=== PATIENT | female | born 1980 | race Caucasian/White ===

== ENCOUNTER → 2017-08-24 | Outpatient (CLI) | payer OTHER | END | disposition home or self-care (01) | LOC: C.LABSPEC 17:40 | PROVIDERS: ATTEND Obstetrics & Gynecology | DX: O09.511 Supervision of elderly primigravida, first trimester (principal) ==

== ENCOUNTER → 2017-09-06 | Outpatient (CLI) | payer OTHER ==
[~2017-09-06] MED LIST: FLUO20CA35 PO; FROV2.5T5 PO; IBUP-1050 PO; MULT-506 PO
== END | disposition home or self-care (01) ==
LOC: C.PAPS 08:16
PROVIDERS: ATTEND Obstetrics & Gynecology
DX: O09.511 Supervision of elderly primigravida, first trimester (principal)

== ENCOUNTER 2017-09-18 08:41 | Day surgery (SDC) | payer OTHER ==
[2017-09-14 14:22] VITALS: BMI 22.0
[~2017-09-18] VITALS: Ht 149.9 cm; Wt 50.9 kg
[~2017-09-18 08:41] MED LIST changes: +DOXYCYCLINE HYCLATE 100 MG CAP PO SCH; +LACTATED RINGER'S 1000ML 1,000 ML IV SCH
[2017-09-18 09:06] VITALS: BP 112/65; PULSE 81; TEMP 37; O2SAT 98; Ht 149.9 cm; Wt 50.9 kg
[2017-09-18 09:17] LABS: BASO % 0.5 %; BASO ABS # 0.03 K/uL (0-0.2); EOS % 4.3 %; EOS ABS # 0.25 K/uL (0-0.5); HEMATOCRIT 36.3 % (37-47); HEMOGLOBIN 12.4 g/dL (12.0-16.0); IG# 0.01 K/uL (0.00-0.02); LYMPH % 27.8 %; LYMPH ABS # 1.63 K/uL (1.2-3.4); MEAN CELL VOLUME 85.8 fL (80-100); MEAN CORPUSCULAR HEMOGLOBIN 29.3 pg (25-34); MEAN PLATELET VOLUME 8.6 fL (7.4-10.4); MONO % 6.1 %; MONO ABS # 0.36 K/uL (0.11-0.59); NEUT % 61.1 %; NEUT ABS # 3.58 K/uL (1.4-6.5); PLATELET COUNT 260 K/uL (130-400); RED CELL DISTRIBUTION WIDTH CV 13.8 % (11.5-14.5); RED CELL DISTRIBUTION WIDTH SD 42.9 fL (36.4-46.3); WHITE BLOOD COUNT 5.86 K/uL (4.8-10.8)
[2017-09-18] MEDS ORDERED: KETOROLAC TROMETHAMINE 30 MG/ML VIAL ONE (09:22)
[2017-09-18] MEDS ORDERED: PROPOFOL IV EMULSION 10 MG/ML 20 ML VIAL IV ONE (09:22)
[2017-09-18] MEDS ORDERED: LIDOCAINE HCL 2% 2 ML VIAL (20MG/ML) ONE (09:22)
[2017-09-18] MEDS ORDERED: ONDANSETRON INJ 2 MG/ML 2 ML VIAL ONE (09:22)
[2017-09-18] MEDS ORDERED: MIDAZOLAM HCL 1 MG/ML 2ML VIAL ONE (09:22)
[2017-09-18] MEDS ORDERED: DEXAMETHASONE SOD INJ 4 MG/ML VIAL ONE (09:22)
[2017-09-18] MEDS ORDERED: FENTANYL CITRATE INJ 50 MCG/1 ML 2 ML VIAL ONE (09:23)
[2017-09-18 09:26] LABS: MEAN CORPUSCULAR HGB CONC 34.2 g/dl (32-36)
--- NOTE | 2017-09-18 09:40 | History & Physical Bridge Note ---
H&P Re-Evaluation Bridge Note: I have examined the patient, reviewed the History & Physical and in the interval since the performance of the History & Physical I have noted the following changes of clinical significance: No changes noted
[2017-09-18] MEDS ORDERED: METHYLERGONOVINE MALEATE 0.2 MG/ML AMP ONE (10:23)
[2017-09-18] MEDS ORDERED: EpHEDrine SULFATE INJ 50 MG/ML AMP ONE (10:44)
[2017-09-18] MEDS ORDERED: SODIUM CHLORIDE 0.9% 1000ML 1,000 ML IV SCH (10:49)
--- NOTE | 2017-09-18 10:49 | [facility] Post Operative Brief Note ---
Immediate Operative Summary Operative Date Sep 18, 2017. Pre-Operative Diagnosis Missed Post-Operative Diagnosis Same Procedure(s) Performed Suction D&E Surgeon Dr. Nogueira Boat Hoist Operator Surgeon(s) none Estimated Blood Loss 25 Findings Consistent with Post-Op Diagnosis Fluids (cc crystalloids) 800 Specimens a. products of conception Drains bladder drained prior to procedure, 50ml Anesthesia Type General Complication(s) none Disposition Accompanied Pt To Recover: no Disposition: Recovery Room / PACU
--- NOTE | 2017-09-18 10:51 | Discharge Instructions ---
Discharge Instructions Date of Service Sep 18, 2017. Visit Reason for Visit: Missed Discharge Discharge Diagnosis / Problem: Missed Discharge Goals Goal(s): Diagnostic testing, Therapeutic intervention Activity Recommendations Activity Limitations: per Instructions/Follow-up section Anesthesia . Post Anesthesia Instructions: If you have had General Anesthesia or IV Sedation: * Do not drive today. * Resume driving when surgeon permits. * Do not make important decisions or sign legal documents today. * Call surgeon for: 1. Temperature elevations greater than 101 degrees F. 2. Uncontrollable pain. 3. Excessive bleeding. 4. Persistent nausea and vomiting. 5. Medication intolerance (nausea, vomiting or rash). * For nausea and vomiting use only clear liquids such as: tea, soda, bouillon until nausea subsides, then gradually increase diet as tolerated. * If you have any concerns or questions, call your surgeon's office. If physician is unavailable and it is an emergency, call 911 or go to the nearest emergency room. . Instructions / Follow-Up Instructions / Follow-Up ACTIVITY RECOMMENDATIONS: * Avoid tampons, douching, hot tubs, pools, and intercourse until bleeding has stopped. * May shower as usual. * No strenuous activity for 24-48 hours. After 24-48 hours, you may do anything you feel like doing (driving and sports are okay). SPECIAL CARE INSTRUCTIONS: Special Diet: * Mild nausea may occur in the immediate post-operative period. * Take clear liquids such as tea, cola or bouillon until all nausea has subsided; you may then resume your normal diet. Special Care: * Light bleeding and vaginal spotting can last from a few days to 3-4 weeks. Call your doctor if bleeding becomes heavier than the heaviest part of your period. * Check your temperature twice a day for one week. If it goes above 100.4 degrees Fahrenheit (38.0 Celsius), notify your doctor. * Call your doctor's office for an appointment for 6 weeks after your surgery. FOLLOW-UP VISIT: Call your doctor's office for an appointment for 6 weeks after your surgery. Diet Recommendations Recommended Home Diet: resume previous diet Procedures Procedures Performed: Suction D&E Pending Studies Studies pending at discharge: yes List of pending studies: gross pathology Medical Emergencies . Who to Call and When: Medical Emergencies: If at any time you feel your situation is an emergency, please call 911 immediately. . Non-Emergent Contact Non-Emergency issues call your: Primary Care Provider, Staff Antisubmarine Officer . . "Provider Documentation" section prepared by Kia Nogueira. .
[2017-09-18] MEDS ORDERED: PROMETHAZINE HCL INJ 25 MG in SODIUM CHLORIDE 0.9% 50ML 50 ML IV PRN (11:00)
[2017-09-18] MEDS ORDERED: EpHEDrine SULFATE INJ 50 MG/ML AMP IV PRN (11:00)
[2017-09-18] MEDS ORDERED: FENTANYL CITRATE INJ 50 MCG/1 ML 2 ML VIAL IV PRN (11:00)
[2017-09-18] MEDS ORDERED: ATROPINE SULFATE 0.1 MG/ML 5ML SYR IV PRN (11:00)
[2017-09-18] MEDS ORDERED: ONDANSETRON INJ 2 MG/ML 2 ML VIAL IV PRN ×2 (11:00)
[2017-09-18] MEDS ORDERED: OXYCODONE/ACETAMINOPHEN 5-325 TAB PO PRN ×2 (11:00)
--- NOTE | 2017-09-18 11:10 | DIAGNOSTIC IMAGING REPORT ---
ULTRASOUND FOR INTRAOPERATIVE GUIDANCE CLINICAL HISTORY: Missed . Dilatation and excision procedure. COMPARISON STUDY: Obstetrical ultrasound dated 09/14/2017. FINDINGS: The admitted attorneys provided intraoperative guidance for the inspecting engineer in performing a D&E procedure. The initial images show complex solid and cystic material present within the endometrial canal. The final image shows complex fluid within the major canal that likely represent blood products. Clinical correlation will be required. IMPRESSION: Intraoperative sonographic images as above. See operative report for detailed findings. Electronically signed by: Humphrey Madrid M.D. 09/18/2017 11:08 AM Dictated Date/Time: 09/18/2017 11:06 AM
--- NOTE | 2017-09-18 11:10 | DIAGNOSTIC IMAGING REPORT ---
ULTRASOUND FOR INTRAOPERATIVE GUIDANCE CLINICAL HISTORY: Missed . Dilatation and excision procedure. COMPARISON STUDY: Obstetrical ultrasound dated 09/14/2017. FINDINGS: The plastering supervisor provided intraoperative guidance for the property utilization manager in performing a D&E procedure. The initial images show complex solid and cystic material present within the endometrial canal. The final image shows complex fluid within the major canal that likely represent blood products. Clinical correlation will be required. IMPRESSION: Intraoperative sonographic images as above. See operative report for detailed findings. Electronically signed by: Humphrey Madrid M.D. 09/18/2017 11:08 AM Dictated Date/Time: 09/18/2017 11:06 AM
--- NOTE | 2017-09-18 11:12 | [facility] Operative Report ---
Operative Report Operative Date Sep 18, 2017. Pre-Operative Diagnosis Missed Post-Operative Diagnosis Same Procedure(s) Performed Suction D&E Surgeon Dr. Noguiera Fire Protection Fabricator Surgeon(s) none Estimated Blood Loss 25 Fluids 800 Specimens a. products of conception Drains bladder drained prior to procedure, 50ml Anesthesia Type General Complication(s) none Disposition no Recovery Room / PACU Indications Patient is a 36-year-old with last menstrual period 07/05/2017. At her first visit, ultrasound showed a 9 week gestation with no heartbeat. There is also the appearance of some fluid surrounding baby on ultrasound. She was counseled in the office on all options of treatment for miscarriage, and elected to undergo dilation and evacuation in the operating room. Description of Procedure The patient was seen in the preoperative holding area where risks benefits alternatives to surgery were reviewed. She elected to proceed with the case. She had previously signed informed consent under no duress in the office. She received 1 dose of oral doxycycline as preoperative antibiotic. The patient was taken to the operating room, where general anesthesia was administered. She was placed in the dorsal lithotomy position with feet in candycane stirrups, and prepared and draped in the usual standard fashion. A weighted speculum was placed in the vagina, the cervix is visualized, and its anterior lip was grasped with a single-tooth tenaculum. The cervix was then gently dilated to admit a 10 mm curved suction curette. The suction was connected to the suction machine. Under ultrasound guidance, the suction evacuation was undertaken. 3 gentle swipes with the sharp curette were undertaken after suction, and 1 more pass with the suction curette was performed. Ultrasound showed no remaining products of conception at the conclusion of procedure. The patient was given 1 dose of Methergine and a dose of Toradol by anesthesia, all instruments removed from the vagina, excellent hemostasis was observed, and the patient was awoken from anesthesia. She was cleaned of all Betadine prep. She was taken to the recovery area in stable and good condition. She will receive 1 additional dose of doxycycline in the postoperative area, and a prescription for 5 days of twice daily Flagyl. This is already been sent to her pharmacy on file. She will follow-up in the office in 2 weeks. She elected not to have genetic testing performed on the conceptus , and products of conception will be sent to pathology for gross inspection only. I attest to the content of the Intraoperative Record and any orders documented therein. Any exceptions are noted below.
--- NOTE | 2017-09-18 11:27 | Anesthesiology Progress Note ---
Anesthesia Post Op Note Date & Time Sep 18, 2017 at 11:27 Vital Signs Pain Intensity: 0 Vital Signs Past 12 Hours Date Time Temp Pulse Resp B/P (MAP) Pulse Ox O2 Delivery O2 Flow Rate FiO2 09/18/17 11:25 36.6 83 14 123/77 99 Room Air 09/18/17 11:15 92 14 117/71 100 Room Air 09/18/17 11:05 88 14 116/69 100 Oxymask 10 09/18/17 10:57 36.3 92 14 121/69 100 Oxymask 10 09/18/17 09:06 37 81 18 112/65 (81) 98 Room Air Notes Mental Status: alert / awake / arousable, participated in evaluation Pt Amnestic to Procedure: Yes Nausea / Vomiting: adequately controlled Pain: adequately controlled Airway Patency, RR, SpO2: stable & adequate BP & HR: stable & adequate Hydration State: stable & adequate Anesthetic Complications: no major complications apparent
[2017-09-18 11:35] VITALS: BP 102/79; PULSE 80; TEMP 36.5; O2SAT 97
[2017-09-18 12:03] VITALS: BP 104/61; PULSE 78; TEMP 36.3; O2SAT 99
== END 2017-09-18 12:14 | disposition home or self-care (01) ==
LOC: C.ACU 08:41
PROVIDERS: ATTEND Obstetrics & Gynecology
DX: O02.1 Missed abortion (principal); F32.9 Major depressive disorder, single episode, unspecified; Z90.89 Acquired absence of other organs; F41.8 Other specified anxiety disorders; Z83.49 Family history of other endocrine, nutritional and metabolic diseases; Z83.42 Family history of familial hypercholesterolemia; Z81.8 Family history of other mental and behavioral disorders; Z82.49 Family history of ischemic heart disease and other diseases of the circulatory system; Z91.041 Radiographic dye allergy status; Z88.2 Allergy status to sulfonamides

== ENCOUNTER 2018-10-31 07:52 | Inpatient (IN) ==
[2018-10-31] MEDS ORDERED: OXYTOCIN 30 UNITS/500 ML BAG IV PRN ×2 (08:18→08:21)
--- NOTE | 2018-10-31 08:41 | History & Physical Report ---
Date of Service October 31, 2018 Assessment & Plan (1) Elective induction of labor planned: Pt is a 37 year old with lmp of 01/17/2018 and EDC of 10/24/2018 confirmed by 1st trimester ultrasound on 03/15/2018 at 8+1 who presents at 41+0 for induction of labor 2/2 post dates. course was significant for depression/anxiety treated with Prozac 20mg, GDM, GBS +. - FHT reassuring Cat 1 tracing - Membranes intact -3 - GBS + PCN G per protocol - Fulton balloon place yesterday evening ~1999 - LR @ 125 - Pitocin 30 units in 500 mls @ 1 mls/hr -> up by 2 - Monitor FHT/toco - Monitor BP - Routine labor care - Anticipate Vaginal , Expectant management History of Present Illness Primary Care Provider: Sirena Paige, Pt is a 37 year old with lmp of 01/17/2018 and EDC of 10/24/2018 confirmed by 1st trimester ultrasound on 03/15/2018 at 8+1 who presents at 41+0 for induction of labor 2/2 post dates. course was significant for depression/anxiety treated with Prozac 20mg, GDM, GBS +. Last cervical exam prior to fulton balloon insertion was /-3 today on presentation -3. Currently she reports not feeling contractions and does not have significant ctx on toco. Denies nausea, vomiting, RUQ pain, swelling, headache, blurred vision, vaginal bleeding, or decreased movement. Pt resting comfortably in bed no acute complaints, answered all questions. labs First Visit: 8+1 Weight Gain: 28.8 lbs A+ antibody neg Last HGB: 13.2 10/25/2018 DM screen:143 08/05/2018 failed GTT FBS:74, 1 hour 176, 2 hour 157 Rubella Immune HIV neg Pap neg 09/06/17 Last U/S 09/20/18: Cephalic, AC 17% EGA:41+0 BP Range 100/80-152/94 U/A: NG GBS Postive 09/26/2018 RPR Negative HBsAG Negative GC/ Chlamydia negative Allergies Allergy/AdvReac Type Severity Reaction Status Date / Time Iodinated Contrast- Oral and Allergy Severe ANAPHYLAXIS Verified 10/25/18 16:58 IV Dye Sulfa (Sulfonamide Allergy Unknown HIVES Verified 10/25/18 16:58 Antibiotics) tree nut Allergy Hives Verified 10/25/18 16:58 Home Medications Home Medications Medication Instructions Recorded Confirmed Type ferrous sulfate [iron] 325 mg PO DAILY 10/30/18 10/30/18 History fluoxetine [Prozac] 20 mg PO DAILY 10/30/18 10/30/18 History vit-iron fum-folic ac 1 tab PO DAILY 10/30/18 10/30/18 History [ Vitamin] Patient History Medical History Depression take Prozac H/O wisdom tooth extraction Hx: UTI (urinary tract infection) as a child and in younger adult years Migraines has not had one in "years" since late 20s Ovarian cyst Surgical History History of appendectomy at age 33 History of dilation and curettage s/p SAB in 09/2017 Social History Preferred Language: Slovenian Beliefs That Will Affect Care: None marital status: Current Living Situation: Spouse Feels Safe at Home: Yes Smoking Status: Never smoker Hx Alcohol Use: No Hx Substance Use: No OB History OBHX: 09/14/2017 Spontaneous @ 10+5, Curent : LMP 01/17/2018, not on BC at conception, hCG+ on 02/11/2018, took PNV and Iron throughout [employer] History GYNHX: menarche @ 13, monthly cycles 28 days, normal amount and duration, neg pap hx abnormal pap 2004, hx D&E 09/2017, hx UTI, hx ovarian cysts, yeast infections, no hx PID or STDS PMHX: hx UTI, migraines- Frova PRN (has not taken since ), hx depression/anxiety- Prozac managed by [facility] Dr. Patel, appendectomy, wisdom teeth, cryosurgery, +chicken pox Allergies: sulfa, IV dye, tree nuts Physical Exam Constitutional: WD/WN, vitals as above no acute distress Eyes: normal visual loyd by confrontation Neck: normal visual inspection and trachea midline Respiratory: normal respiratory effort, lungs clear to auscultation Cardiovascular: RRR, no murmur, no edema Heart Sounds: normal S1 and normal S2 Extremities: normal capillary refill; no calf tenderness Gastrointestinal (Abdomen): Gravid belly Musculoskeletal: moves all extremities Skin: no rashes, warm and dry Psychiatric: A+Ox3, euthymic affect Results & Data Laboratory Results 10/31/18 Range/Units 08:34 WBC Pending RBC Pending Hgb Pending Hct Pending MCV Pending MCH Pending MCHC Pending Plt Count Pending Medications Administered Current Inpatient Medications Lactated Ringer's (Lr) 1,000 mls @ 125 mls/hr IV .Q8H PRN; Protocol PRN Reason: L&D Protocol Stop: 11/02/18 08:17 Oxytocin (Pitocin) 30 units in 500 mls @ 333.333 mls/hr IV .Q1H30M PRN; Protocol PRN Reason: Bleeding Control Stop: 11/30/18 08:17 Oxytocin (Pitocin) 30 units in 500 mls @ 1 mls/hr IV .Q24H PRN; Protocol PRN Reason: Labor Induction/Augmentation Stop: 11/02/18 08:20 Penicillin G Potassium 3 mu/ (Dextrose) 106 mls @ 100 mls/hr IV Q4H PRN PRN Reason: Give until delivery Stop: 11/10/18 08:25 Penicillin G Potassium 6 mu/ (Dextrose) 262 mls @ 262 mls/hr IV 0845 ONE Stop: 10/31/18 09:44 Monitoring External Monitor Heart Rate: 140 moderate variability Accelerations: present Decelerations: absent Contraction Frequency: absent Category 1 Resident Activity Tracking Resident Involvement: Resident Care Provided Care Provided: Adult Hospital Medicine
[2018-10-31] MEDS ORDERED: PENICILLIN G POTASSIUM 6 MU in DEXTROSE 5% 250 ML IV ONE (08:45)
[2018-10-31 08:46] LABS: Hematocrit (blood only) 36.7 % (37-47); Hemoglobin 12.5 g/dL (12.0-16.0); Mean Platelet Volume 10.1 fL (7.4-10.4); Platelet Count 158 K/uL (130-400); RDW Coefficient of Variation 14.7 % (11.5-14.5); RDW Standard Deviation 46.2 fL (36.4-46.3); Red Blood Count 4.22 M/uL (4.2-5.4); White Blood Count 11.23 K/uL (4.8-10.8)
[2018-10-31 08:59] LABS: Mean Corpuscular Hgb Conc 34.1 g/dL (32-36)
[2018-10-31] MEDS: LACTATED RINGER'S 1,000 ML IV PRN ×2 (09:24→14:21)
[2018-10-31] MEDS ORDERED: ePHEDrine sulfate 50 MG/ML AMP ONE (13:39)
[2018-10-31] MEDS ORDERED: fentaNYL citrate 100 MCG/2 ML VIAL ONE (13:39)
[2018-10-31] MEDS ORDERED: BUPIVACAINE 0.25% 30 ML VIAL ONE (13:39)
[2018-10-31] MEDS ORDERED: fentaNYL 2MCG/ML ROPIV 1.25MG/ML 100 ML BAG EPI ONE (13:40)
[2018-10-31] MEDS ORDERED: DiphenhydrAMINE HCL 50 MG/ML VIAL IV PRN (13:50)
[2018-10-31] MEDS ORDERED: LACTATED RINGER'S 1,000 ML IV PRN (13:50)
[2018-10-31] MEDS ORDERED: NALBUPHINE HCL INJ 10 MG/ML AMP IV PRN (13:50)
[2018-10-31] MEDS ORDERED: NALOXONE HCL 1 MG in SODIUM CHLORIDE 0.9% 1000ML 1,000 ML IV PRN (13:50)
[2018-10-31] MEDS ORDERED: NALOXONE HCL 0.4 MG/1 ML VIAL/CARP IV PRN (13:50)
[2018-10-31] MEDS: PENICILLIN G POTASSIUM 3 MU in DEXTROSE 5% 100 ML IV PRN ×3 (13:50→22:13)
[2018-10-31] MEDS ORDERED: ePHEDrine sulfate 50 MG/ML AMP IV PRN (13:50)
[2018-10-31] MEDS ORDERED: ONDANSETRON INJ 2 MG/ML 2 ML VIAL IV PRN (13:50)
--- NOTE | 2018-10-31 13:52 | Anesthesiology Consultation ---
Date of Service October 31, 2018 Assessment & Plan (1) Encounter for pre-operative examination: Chart Review Chart Review: Patient NOT seen in Pre Admission Testing and Acceptable Risk for Labor Epidural Consults Requested none History Height/Weight Height: 4 ft 11 in Weight: 63.957 kg Allergies Allergy/AdvReac Type Severity Reaction Status Date / Time Iodinated Contrast- Oral and Allergy Severe ANAPHYLAXIS Verified 10/25/18 16:58 IV Dye Sulfa (Sulfonamide Allergy Unknown HIVES Verified 10/25/18 16:58 Antibiotics) tree nut Allergy Hives Verified 10/25/18 16:58 Medications Home Medications Medication Instructions Recorded Confirmed Last Taken ferrous sulfate [iron] 325 mg PO DAILY 10/30/18 10/31/18 1 Day Ago ~10/30/18 fluoxetine [Prozac] 20 mg PO DAILY 10/30/18 10/31/18 1 Day Ago ~10/30/18 vit-iron fum-folic ac 1 tab PO DAILY 10/30/18 10/31/18 10/31/18 [ Vitamin] fluoxetine 1 mg PO DAILY 10/31/18 10/31/18 1 Day Ago ~10/30/18 Active Medications Generic Name Dose Route Start Last Admin Trade Name Freq PRN Reason Stop Dose Admin Lactated Ringer's 1,000 mls @ 125 mls/hr 10/31/18 08:18 10/31/18 13:45 Lr IV 11/02/18 08:17 999 mls/hr .Q8H PRN Infusion L&D Protocol Protocol Oxytocin 30 units in 500 mls @ 11 mls/hr 10/31/18 08:21 10/31/18 12:05 Pitocin IV 11/02/18 08:20 0.66 units/hr .Q24H PRN 11 mls/hr Labor Induction/Augmentation Titration Protocol 0.66 UNITS/HR Penicillin G Potassium 3 mu/ 106 mls @ 100 mls/hr 10/31/18 08:26 10/31/18 13:50 Dextrose IV 11/10/18 08:25 100 mls/hr Q4H PRN Administration Give until delivery Past Medical History Medical History Depression take Prozac H/O wisdom tooth extraction Hx: UTI (urinary tract infection) as a child and in younger adult years Migraines has not had one in "years" since late 20s Ovarian cyst Exercise / Class Metabolic Activity II 4-5 Yardwork/Stairs/Walk up hill Past Surgical History Surgical History History of appendectomy at age 33 History of dilation and curettage s/p SAB in 09/2017 Past Anesthesia History No Hx of Anesthesia Complications and No Family Hx of Anesthesia Complications History of PONV No Hx of PONV and No Hx of Motion Sickness Social History Smoking Status: Never smoker Do You Dip or Chew Tobacco: No Hx Alcohol Use: No alcohol intake frequency: 3 or more drinks per day Hx Substance Use: No substance use type: does not use Physical Exam Vital Signs Last Vital Signs Temp 36.7 C 10/31/18 11:36 Pulse 92 H 10/31/18 14:06 Resp 18 10/31/18 11:36 BP 145/85 H 10/31/18 14:06 Pulse Ox 100 10/31/18 14:06 Testing Laboratory Results 10/31/18 08:34
--- NOTE | 2018-10-31 22:09 | Obstetrical Progress Note ---
Date of Service October 31, 2018 Assessment & Plan (1) 40 weeks gestation of : 37yo G1 at 41 weeks. IOL 1. Fetus: Cat 1 2. Labor: Unchanged. Continue pitocin 3. Vitals WNL 4 Pain:Epidural PRM 5. GBS +: PCN Subjective Patient doing well. reporting moderate contractions Physical Exam Genitourinary: OB Exam Abdomen: + irregular contractions Manual OB Exam: + cervical dilation 4 cm, + cervical effacement 70%, + station -2 and + amniotic fluid OB Exam Monitor Tracing: + external FHT monitor used, + external ut erine monitor used and + category I Results & Data Vital Signs (Past 12 Hours) Vital Signs Temp Pulse Resp BP Pulse Ox 10/31/18 22:02 73 119/67 10/31/18 22:01 71 97 10/31/18 21:56 81 99 10/31/18 21:51 75 98 10/31/18 21:47 76 133/71 10/31/18 21:46 75 98 10/31/18 21:41 82 98 10/31/18 21:36 75 98 10/31/18 21:32 75 134/67 10/31/18 21:31 78 98 10/31/18 21:30 98.2 F 20 10/31/18 21:26 78 99 10/31/18 21:21 77 98 10/31/18 21:17 81 130/75 10/31/18 21:16 81 99 10/31/18 21:11 88 99 10/31/18 21:06 89 98 10/31/18 21:02 80 129/66 10/31/18 21:01 83 98 10/31/18 20:56 88 99 10/31/18 20:51 82 98 10/31/18 20:48 77 151/67 H 10/31/18 20:46 87 98 10/31/18 20:41 86 98 10/31/18 20:36 86 98 10/31/18 20:32 76 131/75 10/31/18 20:31 81 98 10/31/18 20:30 18 10/31/18 20:26 87 98 10/31/18 20:21 78 99 10/31/18 20:18 76 131/76 10/31/18 20:16 87 99 10/31/18 20:11 79 99 10/31/18 20:06 85 99 051619 20:02 86 139/73 0516/19 20:01 88 99 0516/19 19:56 88 98 051619 19:51 91 H 97 0516/19 19:48 90 141/74 H 051619 19:46 78 97 051619 19:41 92 H 98 0516/19 19:36 81 97 051619 19:32 81 124/81 051619 19:31 82 99 051619 19:30 20 051619 19:26 83 98 051619 19:21 84 98 051619 19:17 81 132/73 051619 19:16 80 98 051619 19:11 83 98 051619 19:06 85 98 051619 19:02 83 127/73 051619 19:01 82 98 051619 19:00 20 0519 18:56 82 98 051619 18:51 81 98 051619 18:47 86 121/75 051619 18:46 88 98 051619 18:41 81 98 051619 18:36 79 98 051619 18:34 82 125/68 051619 18:31 85 98 051619 18:26 81 99 051619 18:21 86 98 051619 18:17 85 119/74 051619 18:16 77 96 051619 18:11 87 98 051619 18:06 82 98 051619 18:02 98.4 F 82 18 117/70 051619 18:01 83 98 0516/19 17:56 79 98 0516/19 17:51 82 98 05/16/19 17:47 79 122/67 0516/19 17:46 81 97 0516/19 17:41 82 97 05/16/19 17:36 95 H 97 0516/19 17:32 75 114/67 0516/19 17:31 79 98 05/16/19 17:26 88 99 051619 17:21 85 98 0516/19 17:17 76 112/67 05/16/19 17:16 76 98 05/16/19 17:11 91 H 98 05/16/19 17:06 88 97 05/16/19 17:02 81 117/71 05/16/19 17:01 83 98 05/16/19 16:56 78 98 05/16/19 16:51 88 98 05/16/19 16:47 81 123/70 05/16/19 16:46 86 98 05/16/19 16:41 87 98 05/16/19 16:36 85 98 05/16/19 16:34 78 125/73 05/16/19 16:31 78 99 05/16/19 16:30 98.1 F 18 051619 16:26 76 99 05/16/19 16:21 76 98 05/16/19 16:18 76 123/70 0516/19 16:16 71 97 05/16/19 16:11 77 99 05/16/19 16:06 73 99 05/16/19 16:02 68 16 115/71 0516/19 16:01 72 98 05/16/19 15:56 71 98 05/16/19 15:51 73 97 05/16/19 15:48 67 120/72 05/16/19 15:46 71 98 05/16/19 15:41 72 98 05/16/19 15:36 70 98 05/16/19 15:32 73 18 119/74 05/16/19 15:31 68 98 05/16/19 15:26 73 98 05/16/19 15:21 80 18 98 05/16/19 15:17 65 119/73 05/16/19 15:16 73 99 05/16/19 15:11 69 99 05/16/19 15:06 100 H 100 05/16/19 15:02 88 16 116/76 05/16/19 15:01 80 99 05/16/19 14:56 94 H 98 05/16/19 14:51 84 99 05/16/19 14:50 16 05/16/19 14:47 79 115/71 05/16/19 14:46 75 98 05/16/19 14:41 97.9 F 98 H 18 99 05/16/19 14:36 109 H 99 05/16/19 14:31 96 H 99 05/16/19 14:30 88 16 135/73 10/31/18 14:26 87 106/68 99 10/31/18 14:22 91 H 20 118/67 10/31/18 14:21 88 99 10/31/18 14:18 82 119/63 10/31/18 14:16 81 99 10/31/18 14:14 82 117/61 10/31/18 14:11 78 99 10/31/18 14:10 79 127/63 10/31/18 14:09 18 10/31/18 14:06 92 H 145/85 H 100 10/31/18 14:01 97 H 100 10/31/18 13:58 93 H 141/84 H 10/31/18 13:56 94 H 99 10/31/18 12:41 74 138/77 10/31/18 11:36 98.1 F 86 18 133/82 10/31/18 10:42 78 18 136/82
--- NOTE | 2018-10-31 22:11 | Obstetrical Progress Note ---
Date of Service October 31, 2018 Assessment & Plan (1) 40 weeks gestation of : 37yo G1 at 41 weeks. IOL 1. Fetus: Cat 1 2. Labor: Unchanged. Continue pitocin. AROM clr 3. Vitals WNL 4 Pain:Epidural PRM 5. GBS +: PCN Subjective Patient doing well. reporting moderate contractions Physical Exam Genitourinary: Manual OB Exam: + cervical dilation 5 cm, + cervical effacement 70%, + station -2 and + amniotic fluid clear OB Exam Monitor Tracing: + external FHT monitor used, + external uterine monitor used and + category I Results & Data Vital Signs (Past 12 Hours) Vital Signs Temp Pulse Resp BP Pulse Ox 10/31/18 22:06 73 98 10/31/18 22:02 73 119/67 10/31/18 22:01 71 97 10/31/18 21:56 81 99 10/31/18 21:51 75 98 10/31/18 21:47 76 133/71 10/31/18 21:46 75 98 10/31/18 21:41 82 98 10/31/18 21:36 75 98 10/31/18 21:32 75 134/67 10/31/18 21:31 78 98 10/31/18 21:30 98.2 F 20 10/31/18 21:26 78 99 10/31/18 21:21 77 98 10/31/18 21:17 81 130/75 10/31/18 21:16 81 99 10/31/18 21:11 88 99 10/31/18 21:06 89 98 10/31/18 21:02 80 129/66 10/31/18 21:01 83 98 10/31/18 20:56 88 99 10/31/18 20:51 82 98 10/31/18 20:48 77 151/67 H 10/31/18 20:46 87 98 10/31/18 20:41 86 98 10/31/18 20:36 86 98 10/31/18 20:32 76 131/75 10/31/18 20:31 81 98 10/31/18 20:30 18 10/31/18 20:26 87 98 10/31/18 20:21 78 99 10/31/18 20:18 76 131/76 10/31/18 20:16 87 99 10/31/18 20:11 79 99 05/16/19 20:06 85 99 05/16/19 20:02 86 139/73 0516/19 20:01 88 99 05/16/19 19:56 88 98 0516/19 19:51 91 H 97 0516/19 19:48 90 141/74 H 051619 19:46 78 97 0516/19 19:41 92 H 98 0516/19 19:36 81 97 0516/19 19:32 81 124/81 051619 19:31 82 99 051619 19:30 20 051619 19:26 83 98 0516/19 19:21 84 98 051619 19:17 81 132/73 051619 19:16 80 98 051619 19:11 83 98 051619 19:06 85 98 051619 19:02 83 127/73 051619 19:01 82 98 051619 19:00 20 051619 18:56 82 98 051619 18:51 81 98 051619 18:47 86 121/75 051619 18:46 88 98 051619 18:41 81 98 051619 18:36 79 98 051619 18:34 82 125/68 051619 18:31 85 98 0516/19 18:26 81 99 051619 18:21 86 98 051619 18:17 85 119/74 051619 18:16 77 96 051619 18:11 87 98 051619 18:06 82 98 051619 18:02 98.4 F 82 18 117/70 051619 18:01 83 98 0516/19 17:56 79 98 0516/19 17:51 82 98 0516/19 17:47 79 122/67 0516/19 17:46 81 97 05/16/19 17:41 82 97 0516/19 17:36 95 H 97 0516/19 17:32 75 114/67 0516/19 17:31 79 98 0516/19 17:26 88 99 05/16/19 17:21 85 98 05/16/19 17:17 76 112/67 05/16/19 17:16 76 98 05/16/19 17:11 91 H 98 05/16/19 17:06 88 97 05/16/19 17:02 81 117/71 05/16/19 17:01 83 98 05/16/19 16:56 78 98 05/16/19 16:51 88 98 05/16/19 16:47 81 123/70 05/16/19 16:46 86 98 05/16/19 16:41 87 98 05/16/19 16:36 85 98 05/16/19 16:34 78 125/73 05/16/19 16:31 78 99 05/16/19 16:30 98.1 F 18 051619 16:26 76 99 05/16/19 16:21 76 98 05/16/19 16:18 76 123/70 0516/19 16:16 71 97 05/16/19 16:11 77 99 0516/19 16:06 73 99 05/16/19 16:02 68 16 115/71 0516/19 16:01 72 98 05/16/19 15:56 71 98 05/16/19 15:51 73 97 05/16/19 15:48 67 120/72 05/16/19 15:46 71 98 05/16/19 15:41 72 98 05/16/19 15:36 70 98 05/16/19 15:32 73 18 119/74 05/16/19 15:31 68 98 05/16/19 15:26 73 98 05/16/19 15:21 80 18 98 05/16/19 15:17 65 119/73 05/16/19 15:16 73 99 05/16/19 15:11 69 99 05/16/19 15:06 100 H 100 05/16/19 15:02 88 16 116/76 05/16/19 15:01 80 99 05/16/19 14:56 94 H 98 05/16/19 14:51 84 99 05/16/19 14:50 16 05/16/19 14:47 79 115/71 05/16/19 14:46 75 98 05/16/19 14:41 97.9 F 98 H 18 99 05/16/19 14:36 109 H 99 05/16/19 14:31 96 H 99 10/31/18 14:30 88 16 135/73 10/31/18 14:26 87 106/68 99 10/31/18 14:22 91 H 20 118/67 10/31/18 14:21 88 99 10/31/18 14:18 82 119/63 10/31/18 14:16 81 99 10/31/18 14:14 82 117/61 10/31/18 14:11 78 99 10/31/18 14:10 79 127/63 10/31/18 14:09 18 10/31/18 14:06 92 H 145/85 H 100 10/31/18 14:01 97 H 100 10/31/18 13:58 93 H 141/84 H 10/31/18 13:56 94 H 99 10/31/18 12:41 74 138/77 10/31/18 11:36 98.1 F 86 18 133/82 10/31/18 10:42 78 18 136/82
--- NOTE | 2018-10-31 22:12 | Obstetrical Progress Note ---
Date of Service October 31, 2018 Assessment & Plan (1) 40 weeks gestation of : 37yo G1 at 41 weeks. IOL 1. Fetus: Cat 1 2. Labor: Unchanged. Continue pitocin. AROM clr, IUPC 3. Vitals WNL 4 Pain:Epidural placed 5. GBS +: PCN Subjective Reporting increased pressure Physical Exam Genitourinary: Manual OB Exam: + cervical dilation 5 cm, + cervical effacement 80% and + station -2 OB Exam Monitor Tracing: + external FHT monitor used, + intra-uterine pressure catheter used and + category I Results & Data Vital Signs (Past 12 Hours) Vital Signs Temp Pulse Resp BP Pulse Ox 10/31/18 22:06 73 98 10/31/18 22:02 73 119/67 10/31/18 22:01 71 97 10/31/18 22:00 20 10/31/18 21:56 81 99 10/31/18 21:51 75 98 10/31/18 21:47 76 133/71 10/31/18 21:46 75 98 10/31/18 21:41 82 98 10/31/18 21:36 75 98 10/31/18 21:32 75 134/67 10/31/18 21:31 78 98 10/31/18 21:30 98.2 F 20 10/31/18 21:26 78 99 10/31/18 21:21 77 98 10/31/18 21:17 81 130/75 10/31/18 21:16 81 99 10/31/18 21:11 88 99 10/31/18 21:06 89 98 10/31/18 21:02 80 129/66 10/31/18 21:01 83 98 10/31/18 20:56 88 99 10/31/18 20:51 82 98 10/31/18 20:48 77 151/67 H 10/31/18 20:46 87 98 10/31/18 20:41 86 98 10/31/18 20:36 86 98 10/31/18 20:32 76 131/75 10/31/18 20:31 81 98 10/31/18 20:30 18 10/31/18 20:26 87 98 10/31/18 20:21 78 99 10/31/18 20:18 76 131/76 10/31/18 20:16 87 99 05/16/19 20:11 79 99 05/1619 20:06 85 99 05/1619 20:02 86 139/73 051619 20:01 88 99 05/16/19 19:56 88 98 051619 19:51 91 H 97 0516/19 19:48 90 141/74 H 051619 19:46 78 97 051619 19:41 92 H 98 051619 19:36 81 97 051619 19:32 81 124/81 051619 19:31 82 99 051619 19:30 20 051619 19:26 83 98 051619 19:21 84 98 051619 19:17 81 132/73 051619 19:16 80 98 051619 19:11 83 98 051619 19:06 85 98 051619 19:02 83 127/73 051619 19:01 82 98 051619 19:00 20 05 18:56 82 98 051619 18:51 81 98 051619 18:47 86 121/75 051619 18:46 88 98 051619 18:41 81 98 051619 18:36 79 98 051619 18:34 82 125/68 051619 18:31 85 98 051619 18:26 81 99 051619 18:21 86 98 051619 18:17 85 119/74 051619 18:16 77 96 051619 18:11 87 98 051619 18:06 82 98 051619 18:02 98.4 F 82 18 117/70 0516/19 18:01 83 98 0516/19 17:56 79 98 05/16/19 17:51 82 98 05/16/19 17:47 79 122/67 0516/19 17:46 81 97 05/16/19 17:41 82 97 05/16/19 17:36 95 H 97 0516/19 17:32 75 114/67 0516/19 17:31 79 98 05/16/19 17:26 88 99 0516/19 17:21 85 98 05/16/19 17:17 76 112/67 05/16/19 17:16 76 98 05/16/19 17:11 91 H 98 05/16/19 17:06 88 97 05/16/19 17:02 81 117/71 05/16/19 17:01 83 98 05/16/19 16:56 78 98 05/16/19 16:51 88 98 05/16/19 16:47 81 123/70 0516/19 16:46 86 98 05/16/19 16:41 87 98 05/16/19 16:36 85 98 05/16/19 16:34 78 125/73 0516/19 16:31 78 99 05/16/19 16:30 98.1 F 18 051619 16:26 76 99 0516/19 16:21 76 98 05/16/19 16:18 76 123/70 0516/19 16:16 71 97 051619 16:11 77 99 051619 16:06 73 99 051619 16:02 68 16 115/71 0516/19 16:01 72 98 05/16/19 15:56 71 98 05/16/19 15:51 73 97 05/16/19 15:48 67 120/72 0516/19 15:46 71 98 05/16/19 15:41 72 98 05/16/19 15:36 70 98 05/16/19 15:32 73 18 119/74 05/16/19 15:31 68 98 05/16/19 15:26 73 98 05/16/19 15:21 80 18 98 05/16/19 15:17 65 119/73 05/16/19 15:16 73 99 05/16/19 15:11 69 99 05/16/19 15:06 100 H 100 05/16/19 15:02 88 16 116/76 0516/19 15:01 80 99 05/16/19 14:56 94 H 98 05/16/19 14:51 84 99 05/16/19 14:50 16 05/1619 14:47 79 115/71 05/16/19 14:46 75 98 05/16/19 14:41 97.9 F 98 H 18 99 05/16/19 14:36 109 H 99 05/16/19 14:31 96 H 99 10/31/18 14:30 88 16 135/73 10/31/18 14:26 87 106/68 99 10/31/18 14:22 91 H 20 118/67 10/31/18 14:21 88 99 10/31/18 14:18 82 119/63 10/31/18 14:16 81 99 10/31/18 14:14 82 117/61 10/31/18 14:11 78 99 10/31/18 14:10 79 127/63 10/31/18 14:09 18 10/31/18 14:06 92 H 145/85 H 100 10/31/18 14:01 97 H 100 10/31/18 13:58 93 H 141/84 H 10/31/18 13:56 94 H 99 10/31/18 12:41 74 138/77 10/31/18 11:36 98.1 F 86 18 133/82 10/31/18 10:42 78 18 136/82
[2018-10-31] MEDS: fentaNYL 2MCG/ML ROPIV 1.25MG/ML 100 ML BAG EPI PRN (23:26)
[2018-11-01] MEDS: fentaNYL 2MCG/ML ROPIV 1.25MG/ML 100 ML BAG EPI PRN ×2 (00:40→05:19)
[2018-11-01] MEDS ORDERED: Nursing to Pharmacy Communication ONE (00:49)
[2018-11-01] MEDS: LACTATED RINGER'S 1,000 ML IV PRN ×2 (01:21→08:47)
[2018-11-01] MEDS: PENICILLIN G POTASSIUM 3 MU in DEXTROSE 5% 100 ML IV PRN ×2 (02:09→06:09)
--- NOTE | 2018-11-01 07:16 | Labor Progress Brief Note ---
Date of Service November 01, 2018 Subjective comfortable Assessment & Plan (1) Elective induction of labor planned: sign out received from Dr. Morales. Patient has made poor progress and we have not been able to really get adequate contractions. Baby has recovered with pit off. Plan to restart pitocin after one hour and go up again. If baby tolerates, can continue to attempt. If cannot get adequate contractions or baby does not tolerate, will need to move to c/s. Patient expresses understanding. Physical Exam Constitutional: WD/WN, vitals as above Genitourinary: cx--6-7//-2 toco--pit off, rare, poor contraction efm--155 with mod variability, small accels, +scalp stim Results & Data Vital Signs (Past 12 Hours) Vital Signs Temp Pulse Resp BP Pulse Ox 11/01/18 07:11 84 97 11/01/18 07:06 87 98 11/01/18 07:01 85 96 11/01/18 06:56 83 96 11/01/18 06:51 77 96 11/01/18 06:46 87 97 11/01/18 06:41 90 99 11/01/18 06:36 99.3 F 86 18 98 11/01/18 06:31 93 H 98 11/01/18 06:26 90 98 11/01/18 06:21 95 H 100 11/01/18 06:17 90 137/82 11/01/18 06:16 88 99 11/01/18 06:11 90 98 11/01/18 06:06 92 H 95 11/01/18 06:01 86 98 11/01/18 05:56 89 98 11/01/18 05:51 79 98 11/01/18 05:46 87 97 11/01/18 05:41 90 97 11/01/18 05:36 82 95 11/01/18 05:31 94 H 98 11/01/18 05:26 97 H 97 11/01/18 05:21 93 H 97 11/01/18 05:17 98.6 F 80 16 130/77 11/01/18 05:16 88 97 11/01/18 05:11 91 H 96 11/01/18 05:06 94 H 99 11/01/18 05:01 82 96 11/01/18 04:56 86 97 11/01/18 04:51 86 98 11/01/18 04:46 87 97 1719 04:41 82 98 17 04:36 81 98 1719 04:31 87 97 11/01/18 04:26 88 97 1719 04:21 88 97 11/01/18 04:17 77 124/72 05 04:16 91 H 97 11/01/18 04:11 92 H 96 11/01/18 04:06 94 H 97 11/01/18 04:03 99.5 F 18 11/01/18 04:01 91 H 97 11/01/18 03:56 85 95 1719 03:51 84 95 17 03:46 83 95 11/01/18 03:41 82 96 11/01/18 03:36 85 95 19 03:31 90 97 11/01/18 03:26 96 H 98 11/01/18 03:21 87 97 11/01/18 03:17 90 137/82 11/01/18 03:16 89 98 051719 03:11 92 H 98 11/01/18 03:06 83 98 11/01/18 03:01 84 98 11/01/18 02:56 91 H 98 11/01/18 02:51 92 H 98 11/01/18 02:46 86 99 1719 02:41 102 H 99 11/01/18 02:36 101 H 99 11/01/18 02:31 99 H 99 11/01/18 02:26 91 H 97 11/01/18 02:21 95 H 97 11/01/18 02:17 99.0 F 87 16 133/79 11/01/18 02:16 91 H 98 11/01/18 02:11 84 96 17 02:07 88 94 11/01/18 02:06 85 95 11/01/18 02:02 88 120/72 94 19 02:01 89 95 051719 01:57 89 94 1719 01:56 86 94 051719 01:52 88 94 1719 01:51 87 95 051719 01:47 83 119/71 94 1719 01:46 84 95 11/01/18 01:41 99 H 95 11/01/18 01:36 85 96 11/01/18 01:32 85 131/79 05 01:31 90 97 11/01/18 01:30 16 05 01:26 87 96 11/01/18 01:21 84 96 11/01/18 01:18 82 128/71 11/01/18 01:16 89 96 11/01/18 01:11 88 96 11/01/18 01:06 79 96 11/01/18 01:02 98.4 F 78 130/77 11/01/18 01:01 79 97 11/01/18 00:56 85 98 11/01/18 00:51 82 99 11/01/18 00:47 86 140/68 11/01/18 00:46 87 97 11/01/18 00:45 98.4 F 11/01/18 00:41 95 H 99 11/01/18 00:36 77 97 11/01/18 00:32 80 143/71 H 11/01/18 00:31 87 98 11/01/18 00:26 82 98 11/01/18 00:21 79 97 11/01/18 00:18 77 18 138/74 11/01/18 00:16 77 97 11/01/18 00:11 81 97 11/01/18 00:06 86 97 11/01/18 00:02 76 128/67 11/01/18 00:01 86 98 10/31/18 23:56 79 97 10/31/18 23:51 84 98 10/31/18 23:48 82 18 136/66 05 23:46 85 99 051619 23:41 92 H 98 10/31/18 23:36 79 98 051619 23:32 91 H 124/78 051619 23:31 89 99 051619 23:26 78 97 051619 23:21 75 97 051619 23:17 72 126/75 051619 23:16 76 97 051619 23:11 79 98 0516 23:06 77 97 05 23:02 98.2 F 86 16 127/76 10/31/18 23:01 87 97 10/31/18 23:00 20 10/31/18 22:56 81 99 10/31/18 22:51 70 98 10/31/18 22:48 70 131/82 10/31/18 22:46 76 98 10/31/18 22:41 88 98 10/31/18 22:36 75 97 10/31/18 22:34 73 128/64 10/31/18 22:31 75 98 10/31/18 22:30 20 10/31/18 22:26 74 98 10/31/18 22:21 73 98 10/31/18 22:17 71 129/70 10/31/18 22:16 74 98 10/31/18 22:11 73 97 10/31/18 22:06 73 98 10/31/18 22:02 73 119/67 10/31/18 22:01 71 97 10/31/18 22:00 20 10/31/18 21:56 81 99 10/31/18 21:51 75 98 10/31/18 21:47 76 133/71 10/31/18 21:46 75 98 10/31/18 21:41 82 98 10/31/18 21:36 75 98 10/31/18 21:32 75 134/67 10/31/18 21:31 78 98 10/31/18 21:30 98.2 F 20 10/31/18 21:26 78 99 10/31/18 21:21 77 98 10/31/18 21:17 81 130/75 10/31/18 21:16 81 99 10/31/18 21:11 88 99 10/31/18 21:06 89 98 10/31/18 21:02 80 129/66 10/31/18 21:01 83 98 10/31/18 20:56 88 99 10/31/18 20:51 82 98 10/31/18 20:48 77 151/67 H 10/31/18 20:46 87 98 10/31/18 20:41 86 98 10/31/18 20:36 86 98 05 20:32 76 131/75 05 20:31 81 98 05 20:30 18 10/31/18 20:26 87 98 10/31/18 20:21 78 99 10/31/18 20:18 76 131/76 10/31/18 20:16 87 99 10/31/18 20:11 79 99 10/31/18 20:06 85 99 10/31/18 20:02 86 139/73 10/31/18 20:01 88 99 10/31/18 19:56 88 98 10/31/18 19:51 91 H 97 10/31/18 19:48 90 141/74 H 10/31/18 19:46 78 97 10/31/18 19:41 92 H 98 10/31/18 19:36 81 97 10/31/18 19:32 81 124/81 10/31/18 19:31 82 99 10/31/18 19:30 20 10/31/18 19:26 83 98 10/31/18 19:21 84 98 10/31/18 19:17 81 132/73 10/31/18 19:16 80 98
--- NOTE | 2018-11-01 09:11 | Labor Progress Brief Note ---
Date of Service November 01, 2018 Subjective comfortable Assessment & Plan (1) Elective induction of labor planned: (2) Non-reassuring electronic monitoring tracing: Fetus is not tolerating labor. Discussion with the patient regarding the situation and recommend c/s. She is in agreement. r/b/se of c/s discussed including bleeding, transfusion, infection, poor wound healing, damage to surrounding structures (bowel, bladder, vessels, nerves, ureters), need for further surgery, injury to baby. consent reviewed and sigend. Physical Exam Constitutional: WD/WN, vitals as above Genitourinary: cx-deferred toco--rare contraction, very poor per iupc, pit at 6 efm--150s with mod variability, patient had 3 variable/lates for the last three contractions, resolved spontaneously. Results & Data Vital Signs (Past 12 Hours) Vital Signs Temp Pulse Resp BP Pulse Ox 11/01/18 09:01 87 99 11/01/18 08:59 79 94 11/01/18 08:56 89 96 11/01/18 08:51 75 95 11/01/18 08:50 98.6 F 18 11/01/18 08:46 79 95 11/01/18 08:43 85 94 11/01/18 08:41 90 95 11/01/18 08:36 84 96 11/01/18 08:31 86 97 11/01/18 08:26 92 H 96 11/01/18 08:21 85 97 11/01/18 08:17 90 125/72 11/01/18 08:16 93 H 97 11/01/18 08:11 85 98 11/01/18 08:06 84 98 11/01/18 08:01 97 H 97 11/01/18 07:56 86 98 11/01/18 07:51 92 H 97 11/01/18 07:46 102 H 95 11/01/18 07:41 85 96 11/01/18 07:36 83 97 11/01/18 07:31 79 95 11/01/18 07:26 84 95 11/01/18 07:21 76 96 11/01/18 07:17 98.4 F 83 18 129/77 11/01/18 07:16 90 97 11/01/18 07:11 84 97 11/01/18 07:06 87 98 05/17/19 07:01 85 96 051719 06:56 83 96 051719 06:51 77 96 051719 06:46 87 97 051719 06:41 90 99 051719 06:36 99.3 F 86 18 98 051719 06:31 93 H 98 051719 06:26 90 98 051719 06:21 95 H 100 051719 06:17 90 137/82 051719 06:16 88 99 051719 06:11 90 98 051719 06:06 92 H 95 0519 06:01 86 98 05 05:56 89 98 051719 05:51 79 98 051719 05:46 87 97 0519 05:41 90 97 19 05:36 82 95 0519 05:31 94 H 98 11/01/18 05:26 97 H 97 05 05:21 93 H 97 11/01/18 05:17 98.6 F 80 16 130/77 0519 05:16 88 97 051719 05:11 91 H 96 19 05:06 94 H 99 11/01/18 05:01 82 96 051719 04:56 86 97 051719 04:51 86 98 051719 04:46 87 97 0517/19 04:41 82 98 051719 04:36 81 98 051719 04:31 87 97 051719 04:26 88 97 051719 04:21 88 97 051719 04:17 77 124/72 0517/19 04:16 91 H 97 0517/19 04:11 92 H 96 1719 04:06 94 H 97 051719 04:03 99.5 F 18 19 04:01 91 H 97 0517/19 03:56 85 95 0517/19 03:51 84 95 0517/19 03:46 83 95 0517/19 03:41 82 96 0517/19 03:36 85 95 0517/19 03:31 90 97 051719 03:26 96 H 98 051719 03:21 87 97 051719 03:17 90 137/82 051719 03:16 89 98 051719 03:11 92 H 98 1719 03:06 83 98 19 03:01 84 98 11/01/18 02:56 91 H 98 17 02:51 92 H 98 17 02:46 86 99 1719 02:41 102 H 99 1719 02:36 101 H 99 1719 02:31 99 H 99 17 02:26 91 H 97 17 02:21 95 H 97 11/01/18 02:17 99.0 F 87 16 133/79 05 02:16 91 H 98 11/01/18 02:11 84 96 11/01/18 02:07 88 94 11/01/18 02:06 85 95 11/01/18 02:02 88 120/72 94 19 02:01 89 95 0517/19 01:57 89 94 051719 01:56 86 94 0517/19 01:52 88 94 0517/19 01:51 87 95 0517/19 01:47 83 119/71 94 0517/19 01:46 84 95 17/19 01:41 99 H 95 19 01:36 85 96 1719 01:32 85 131/79 0517/19 01:31 90 97 1719 01:30 16 0517/19 01:26 87 96 0517/19 01:21 84 96 0517/19 01:18 82 128/71 0517/19 01:16 89 96 0517/19 01:11 88 96 1719 01:06 79 96 11/01/18 01:02 98.4 F 78 130/77 0517/19 01:01 79 97 1719 00:56 85 98 0517/19 00:51 82 99 0517/19 00:47 86 140/68 0517/19 00:46 87 97 1719 00:45 98.4 F 05 00:41 95 H 99 11/01/18 00:36 77 97 11/01/18 00:32 80 143/71 H 11/01/18 00:31 87 98 11/01/18 00:26 82 98 11/01/18 00:21 79 97 11/01/18 00:18 77 18 138/74 11/01/18 00:16 77 97 11/01/18 00:11 81 97 11/01/18 00:06 86 97 11/01/18 00:02 76 128/67 11/01/18 00:01 86 98 10/31/18 23:56 79 97 10/31/18 23:51 84 98 10/31/18 23:48 82 18 136/66 10/31/18 23:46 85 99 10/31/18 23:41 92 H 98 10/31/18 23:36 79 98 10/31/18 23:32 91 H 124/78 10/31/18 23:31 89 99 10/31/18 23:26 78 97 10/31/18 23:21 75 97 10/31/18 23:17 72 126/75 10/31/18 23:16 76 97 10/31/18 23:11 79 98 10/31/18 23:06 77 97 10/31/18 23:02 98.2 F 86 16 127/76 10/31/18 23:01 87 97 10/31/18 23:00 20 10/31/18 22:56 81 99 10/31/18 22:51 70 98 10/31/18 22:48 70 131/82 10/31/18 22:46 76 98 10/31/18 22:41 88 98 10/31/18 22:36 75 97 10/31/18 22:34 73 128/64 10/31/18 22:31 75 98 10/31/18 22:30 20 10/31/18 22:26 74 98 10/31/18 22:21 73 98 10/31/18 22:17 71 129/70 10/31/18 22:16 74 98 10/31/18 22:11 73 97 10/31/18 22:06 73 98 10/31/18 22:02 73 119/67 10/31/18 22:01 71 97 10/31/18 22:00 20 10/31/18 21:56 81 99 10/31/18 21:51 75 98 10/31/18 21:47 76 133/71 10/31/18 21:46 75 98 10/31/18 21:41 82 98 10/31/18 21:36 75 98 10/31/18 21:32 75 134/67 10/31/18 21:31 78 98 10/31/18 21:30 98.2 F 20 10/31/18 21:26 78 99 10/31/18 21:21 77 98 10/31/18 21:17 81 130/75 10/31/18 21:16 81 99 10/31/18 21:11 88 99
[2018-11-01] MEDS ORDERED: LIDOCAINE/EPINEPHRINE 2% 1:200,000 20 ML SDV ONE (09:23)
[2018-11-01] MEDS ORDERED: OXYTOCIN 10 UNITS/ML VIAL ONE ×3 (09:23→10:16)
[2018-11-01] MEDS ORDERED: ONDANSETRON INJ 2 MG/ML 2 ML VIAL ONE (09:23)
[2018-11-01] MEDS ORDERED: MoRPHine SULFATE PF 1 MG/ML 10 ML AMP/VIAL ONE (09:24)
[2018-11-01] MEDS ORDERED: CITRIC ACID/SODIUM CITRATE 15 ML UDC PO SCH (09:25)
[2018-11-01] MEDS ORDERED: CITRIC ACID/SODIUM CITRATE 15 ML UDC ONE (09:28)
[2018-11-01] MEDS ORDERED: LACTATED RINGER'S 1,000 ML IV SCH ×3 (09:30→19:00)
[2018-11-01] MEDS ORDERED: CEFAZOLIN 2000MG 2,000 MG/15 ML SYR IV ONE (09:30)
--- NOTE | 2018-11-01 09:31 | Anesthesiology Consultation ---
Date of Service November 01, 2018 Assessment & Plan (1) Encounter for pre-operative examination: Chart Review Chart Review: Acceptable Risk for Surgery Consults Requested none ASA ASA2 Proposed Anesthesia Anesthesia Type: Spinal Risk / Benefits Reviewed With: PT / POA / Parent / Guardian, Accepts Plan and Informed Consent Obtained History Height/Weight Height: 4 ft 11 in Weight: 63.957 kg Allergies Allergy/AdvReac Type Severity Reaction Status Date / Time Iodinated Contrast- Oral and Allergy Severe ANAPHYLAXIS Verified 10/25/18 16:58 IV Dye Sulfa (Sulfonamide Allergy Unknown HIVES Verified 10/25/18 16:58 Antibiotics) tree nut Allergy Hives Verified 10/25/18 16:58 Medications Home Medications Medication Instructions Recorded Confirmed Last Taken ferrous sulfate [iron] 325 mg PO DAILY 10/30/18 10/31/18 1 Day Ago ~10/30/18 fluoxetine [Prozac] 20 mg PO DAILY 10/30/18 10/31/18 1 Day Ago ~10/30/18 vit-iron fum-folic ac 1 tab PO DAILY 10/30/18 10/31/18 10/31/18 [ Vitamin] fluoxetine 1 mg PO DAILY 10/31/18 10/31/18 1 Day Ago ~10/30/18 Active Medications Generic Name Dose Route Start Last Admin Trade Name Freq PRN Reason Stop Dose Admin Lactated Ringer's 1,000 mls @ 125 mls/hr 10/31/18 08:18 11/01/18 08:47 Lr IV 11/02/18 08:17 999 mls/hr .Q8H PRN Administration L&D Protocol Protocol Oxytocin 30 units in 500 mls @ 6 mls/hr 10/31/18 08:21 11/01/18 08:49 Pitocin IV 11/02/18 08:20 0.36 units/hr .Q24H PRN 6 mls/hr Labor Induction/Augmentation Titration Protocol Penicillin G Potassium 3 mu/ 106 mls @ 100 mls/hr 10/31/18 08:26 11/01/18 07:10 Dextrose IV 11/10/18 08:25 Infused Q4H PRN Infusion Give until delivery Lactated Ringer's 1,000 mls @ 999 mls/hr 10/31/18 13:50 11/01/18 08:20 Lr IV 05/17/19 13:49 999 mls/hr .Q1H1M PRN Administration Hypotension Ondansetron HCl 4 mg 10/31/18 13:50 10/31/18 21:51 Zofran IV 11/01/18 13:49 4 mg Q6H PRN Administration Nausea And Vomiting Ropivacaine 100 ml 10/31/18 13:50 11/01/18 05:19 Epidural (L&D) EPI 11/01/18 13:49 100 ml PRN PRN Administration Pain R/T Labor Protocol NPO Date Last Intake of Fluids: 10/31/18 Time Last Intake of Fluids: 13:00 Date Last Intake of Solids: 10/31/18 Time Last Intake of Solids: 06:30 Past Medical History Medical History Depression take Prozac H/O wisdom tooth extraction Hx: UTI (urinary tract infection) as a child and in younger adult years Migraines has not had one in "years" since late 20s Ovarian cyst Exercise / Class Metabolic Activity II 4-5 Yardwork/Stairs/Walk up hill Past Surgical History Surgical History History of appendectomy at age 33 History of dilation and curettage s/p SAB in 09/2017 Past Anesthesia History No Hx of Anesthesia Complications and No Family Hx of Anesthesia Complications History of PONV No Hx of PONV and No Hx of Motion Sickness Social History Smoking Status: Never smoker Do You Dip or Chew Tobacco: No Hx Alcohol Use: No alcohol intake frequency: 3 or more drinks per day Hx Substance Use: No substance use type: does not use Physical Exam Vital Signs Last Vital Signs Temp 98.6 F 11/01/18 08:50 Pulse 88 11/01/18 09:26 Resp 18 11/01/18 08:50 BP 125/72 11/01/18 08:17 Pulse Ox 97 11/01/18 09:26 ENMT Mouth: no dentition abnormality Thyromental Distance: > or= 3.5 Finger Breadths Mallampati Class: II Neck normal visual inspection Respiratory normal respiratory effort Auscultation: lungs clear to auscultation bilaterally Cardiovascular Rate/Rhythm: regular rate and regular rhythm
[2018-11-01] MEDS ORDERED: METHYLERGONOVINE MALEATE 0.2 MG/ML AMP ONE (10:16)
[2018-11-01] MEDS ORDERED: CARBOPROST TROMETHAMINE 250 MCG/ML AMPUL ONE (10:20)
[2018-11-01] MEDS ORDERED: NALOXONE HCL 1 MG in SODIUM CHLORIDE 0.9% 1000ML 1,000 ML IV PRN (10:33)
[2018-11-01] MEDS ORDERED: NALBUPHINE HCL INJ 10 MG/ML AMP IV PRN (10:33)
[2018-11-01] MEDS ORDERED: NALOXONE HCL 0.08 MG in SYRINGE 1.8 ML IV PRN (10:33)
[2018-11-01] MEDS ORDERED: DiphenhydrAMINE HCL 50 MG/ML VIAL IV PRN (10:33)
[2018-11-01] MEDS ORDERED: NALOXONE HCL 0.4 MG/1 ML VIAL/CARP IV PRN (10:33)
[2018-11-01] MEDS ORDERED: MoRPHine SULFATE PF 1 MG/ML 10 ML AMP/VIAL INT SPINAL ONE (10:33)
[2018-11-01] MEDS ORDERED: ONDANSETRON INJ 2 MG/ML 2 ML VIAL IV PRN (10:33)
[2018-11-01] MEDS ORDERED: LACTATED RINGER'S 500 ML IV PRN (10:33)
[2018-11-01] MEDS ORDERED: KETOROLAC 30 MG/ML VIAL IV PRN (10:33)
[2018-11-01] MEDS ORDERED: ePHEDrine sulfate 50 MG/ML AMP IV PRN (10:33)
[2018-11-01] MEDS ORDERED: MEPERIDINE HCL 25 MG/ML CARP IV PRN (10:33)
[2018-11-01] MEDS ORDERED: SUPERCREAM 0.870% 15 GM JAR EXT PRN (10:34)
[2018-11-01] MEDS ORDERED: BENZOCAINE 20% AER SPR 82.5 GM CAN EXT PRN (10:34)
[2018-11-01] MEDS ORDERED: HYDROCORTISONE ACETATE 25 MG SUPP PR PRN (10:34)
[2018-11-01] MEDS ORDERED: DIPHTHERIA/TETANUS/PERTUSSIS 0.5 ML SYR/VIAL IM ONE (10:34)
--- NOTE | 2018-11-01 10:44 | Post Operative Brief Note ---
Immediate Post Op Note v1 Date of Surgery November 01, 2018 Pre & Post Diagnosis Operation Date: 11/01/18 09:30 Pre-Op Diagnosis: intolerance to labor Post-Op Diagnosis: same delivery for live female infant at 1008 Procedure Operation Date: 11/01/18 09:30 Actual Procedures p primary low transverse Section in LD - Mari Carmen MD, FACOG Surgeon Mari Carmen MD, FACOG [employer] Dr. Norris, PGY1 Estimated Blood Loss 700 Findings Consistent with Post-Op Diagnosis Drains Torres Catheter (already indwelling from labor room)
[2018-11-01] MEDS ORDERED: NO NARCOTICS OR SEDATIVES SCH (10:45)
[2018-11-01] MEDS ORDERED: SODIUM CHLORIDE 0.9% 1000ML 1,000 ML IV SCH (10:45)
[2018-11-01] MEDS ORDERED: DC INTRASPINAL MORPHINE SCH (10:45)
[2018-11-01] MEDS ORDERED: ACETAMINOPHEN 1,000 MG/100 ML VIAL IV ONE (11:06)
[2018-11-01 11:23] LABS: Base Excess Cord Arterial Bld -2.6 mEq/L (-9-1.8); CO2 Cord Arterial Blood 47 mmHg (39.1-73.5); HCO3 Cord Arterial Blood 24 mmol/L (19.7-28.5); pH Cord Arterial Blood 7.32 (7.1-7.38)
[2018-11-01] MEDS: OXYTOCIN 20 UNITS in LACTATED RINGER'S 1,000 ML IV SCH ×2 (11:23→19:31)
[2018-11-01 11:27] LABS: Base Excess Cord Venous Blood -3.8 mEq/L (-7.7-1.9); Cord Venous Blood HCO3 20 mmol/L (18.4-26.8); Cord Venous Blood PCO2 34 mmHg (30.4-57.2); Cord Venous Blood PO2 33 mmHg (14.1-43.3); Cord Venous Blood pH 7.39 (7.20-7.44)
--- NOTE | 2018-11-01 11:35 | Operative Report ---
DATE OF OPERATION: 11/01/2018 PREOPERATIVE DIAGNOSES: 1. Intrauterine at 41 weeks. 2. Failed to progress in labor 3. intolerance to labor. POSTOPERATIVE DIAGNOSES: 1. Same. 2. Same. 3. same 4. Thick meconium. PROCEDURE: Primary low transverse section. SURGEON: Mari Carmen MD BIOCHEMICAL ENGINEER: Dr. Trevon Norris, PGY-1. ANESTHESIA: Epidural. ESTIMATED BLOOD LOSS: 700 mL. FLUIDS: 1800 mL. URINE OUTPUT: 250 mL of very dark brown urine drained from the Torres bag at the end of the procedure; however, the urine in the Torres catheter was clearing up and was pale yellow. INDICATIONS: Patient is a 3, para 0-0-1-0 who presented to labor and delivery on the for induction of labor for postdates. She was GBS positive. She was admitted, underwent Pitocin augmentation, penicillin for group B strep prophylaxis and eventually an intrauterine pressure catheter. She progressed very slowly. We were unable to really get adequate uterine contractions despite Pitocin being at 27 milliunits and eventually the baby started having nonreassuring heart tracing. The Pitocin was stopped and the baby recovered and was reinstituted, but the baby continued to have nonreassuring tracing and so decision was made to proceed with section. The patient's final cervical exam was 7, 90, -2. FINDINGS: Viable female , thick meconium noted on hysterotomy, in BENITO presentation. There was a loose nuchal cord x1. Apgars are pending at the time of this dictation. Normal uterus, tubes, and ovaries were noted bilaterally. Cord gas is also pending. COMPLICATIONS: None. DRAINS: Torres. DISPOSITION: To recovery room in stable condition. DESCRIPTION OF PROCEDURE: The patient was taken to the operating room where she was identified verbally and by bracelet. She was placed in dorsal supine position with a leftward tilt. A Torres catheter had already been placed. Her epidural was dosed and she was prepped and draped in normal sterile fashion. The anesthetic was tested and found to be adequate. A time-out was held, identifying correct patient, procedure, positioning, and preoperative antibiotic given. There were no concerns. A Pfannenstiel skin incision was made with a knife. This was taken down the underlying layer of fascia with the knife and Bovie electrocautery. Bleeding was attended to with Bovie electrocautery. The fascia was incised with a knife in the midline and taken out laterally with scissors. The superior edge of the fascial incision was grasped, elevated and the underlying layer of rectus muscle was taken off bluntly and with scissors. In a similar fashion, the inferior edge of the fascial incision was grasped, elevated, and underlying layer of rectus muscle was taken off bluntly and with scissors. The peritoneum was entered by grasping bilaterally with snaps and entering sharply with scissors. The peritoneum and then the rectus muscles were taken superiorly and inferiorly sharply with scissors with good visualization of the bladder. The incision was stretched, the bladder blade was placed. The lower uterine segment was very thin. The bladder flap was created with scissors and blunt dissection. The hysterotomy incision was scored with a knife. It was entered with a snap. Thick brown meconium was noted on hysterotomy. The incision was stretched with the brim greaser operator's fingers. The brim greaser operator's hand was gently placed into the uterus and the infant's head was lifted easily through the uterine incision. The nose and mouth were bulb suctioned and nuchal cord x1 was reduced and the rest of the infant was then delivered without difficulty. The made crying efforts on the operating table, but cord was clamped and cut. The was handed off to waiting pediatricians for drying and attention. Cord blood and gases were obtained. The placenta was manually extracted. The uterus was exteriorized and cleared of all clot and debris with moistened laparotomy sponges. The hysterotomy incision was repaired in 2 layers, the first in a running locked layer of 0 Vicryl, the second in an imbricating layer of 0 Vicryl. Several [id number] sutures were needed for hemostasis. Hemostasis of the uterus was obtained with dilute Pitocin, IM Methergine given in the shoulder and the Hemabate given into the uterus. Once hemostasis of the uterine incision was achieved, the posterior cul-de-sac was cleared of all clot and debris. The uterus was inspected and found to be normal. Normal tubes and ovaries were noted. The uterus was reanteriorized and the uterine incision was found to be hemostatic. The rectus muscles were then approximated in midline with several interrupted sutures of 0 Vicryl. The fascia was reapproximated starting at the edges and meeting in the midline with 0 Vicryl. The subcuticular tissue was copiously irrigated with warm normal saline and found to be hemostatic and the skin was closed with subcuticular stitch of 4-0 Vicryl. All sponge, lap, needle counts were correct x2. The patient tolerated the procedure well and was taken to the recovery room in stable condition. I attest to the content of the Intraoperative Record and any orders documented therein. Any exceptions are noted below. SARAID
--- NOTE | 2018-11-01 11:47 | Anesthesiology Progress Note ---
Date of Service November 01, 2018 Anesthesia Post Procedure Vital Signs Vital Signs: Temp Pulse Resp BP Pulse Ox 11/01/18 11:45 95 H 94 11/01/18 11:43 92 H 104/56 L 11/01/18 11:41 106 H 96 11/01/18 11:38 103 H 93 11/01/18 11:36 102 H 96 11/01/18 11:34 94 H 112/53 L 11/01/18 11:31 100 H 96 11/01/18 11:27 95 H 91 11/01/18 11:26 95 H 97 11/01/18 11:24 94 H 109/64 11/01/18 11:21 100 H 97 11/01/18 11:16 95 H 96 11/01/18 11:13 96 H 121/74 11/01/18 11:11 94 H 98 11/01/18 11:08 102 H 90 11/01/18 11:06 98 H 99 11/01/18 11:03 89 122/73 11/01/18 11:00 100 H 98 11/01/18 10:55 110 H 99 11/01/18 10:53 117 H 126/78 11/01/18 09:42 102 H 128/79 11/01/18 09:41 95 H 99 11/01/18 09:36 87 98 11/01/18 09:31 83 99 11/01/18 09:26 88 97 11/01/18 09:21 86 98 11/01/18 09:16 90 97 11/01/18 09:11 90 97 11/01/18 09:06 84 98 11/01/18 09:01 87 99 11/01/18 08:59 79 94 11/01/18 08:56 89 96 11/01/18 08:51 75 95 11/01/18 08:50 98.6 F 18 11/01/18 08:46 79 95 11/01/18 08:43 85 94 11/01/18 08:41 90 95 11/01/18 08:36 84 96 11/01/18 08:31 86 97 11/01/18 08:26 92 H 96 11/01/18 08:21 85 97 11/01/18 08:20 18 11/01/18 08:17 90 125/72 11/01/18 08:16 93 H 97 11/01/18 08:11 85 98 0519 08:06 84 98 05 08:01 97 H 97 051719 07:56 86 98 0519 07:51 92 H 20 97 051719 07:46 102 H 95 1719 07:41 85 96 051719 07:36 83 97 1719 07:31 79 95 051719 07:30 18 051719 07:26 84 95 0519 07:21 76 96 19 07:17 98.4 F 83 18 129/77 051719 07:16 90 97 11/01/18 07:11 84 97 11/01/18 07:06 87 98 11/01/18 07:01 85 96 19 06:56 83 96 11/01/18 06:51 77 96 0519 06:46 87 97 11/01/18 06:41 90 99 11/01/18 06:36 99.3 F 86 18 98 0519 06:31 93 H 98 19 06:26 90 98 0519 06:21 95 H 100 19 06:17 90 137/82 0519 06:16 88 99 0519 06:11 90 98 0519 06:06 92 H 95 11/01/18 06:01 86 98 051719 05:56 89 98 0519 05:51 79 98 051719 05:46 87 97 051719 05:41 90 97 0519 05:36 82 95 051719 05:31 94 H 98 0519 05:26 97 H 97 051719 05:21 93 H 97 0519 05:17 98.6 F 80 16 130/77 051719 05:16 88 97 051719 05:11 91 H 96 051719 05:06 94 H 99 051719 05:01 82 96 051719 04:56 86 97 051719 04:51 86 98 051719 04:46 87 97 0517/19 04:41 82 98 0517/19 04:36 81 98 1719 04:31 87 97 1719 04:26 88 97 051719 04:21 88 97 19 04:17 77 124/72 051719 04:16 91 H 97 11/01/18 04:11 92 H 96 11/01/18 04:06 94 H 97 11/01/18 04:03 99.5 F 18 11/01/18 04:01 91 H 97 11/01/18 03:56 85 95 1719 03:51 84 95 1719 03:46 83 95 1719 03:41 82 96 17 03:36 85 95 1719 03:31 90 97 17 03:26 96 H 98 11/01/18 03:21 87 97 11/01/18 03:17 90 137/82 11/01/18 03:16 89 98 11/01/18 03:11 92 H 98 11/01/18 03:06 83 98 11/01/18 03:01 84 98 11/01/18 02:56 91 H 98 11/01/18 02:51 92 H 98 11/01/18 02:46 86 99 1719 02:41 102 H 99 19 02:36 101 H 99 1719 02:31 99 H 99 19 02:26 91 H 97 11/01/18 02:21 95 H 97 11/01/18 02:17 99.0 F 87 16 133/79 19 02:16 91 H 98 19 02:11 84 96 1719 02:07 88 94 1719 02:06 85 95 1719 02:02 88 120/72 94 1719 02:01 89 95 051719 01:57 89 94 051719 01:56 86 94 0517/19 01:52 88 94 1719 01:51 87 95 0517/19 01:47 83 119/71 94 0517/19 01:46 84 95 051719 01:41 99 H 95 1719 01:36 85 96 05/17/19 01:32 85 131/79 05 01:31 90 97 11/01/18 01:30 16 11/01/18 01:26 87 96 11/01/18 01:21 84 96 11/01/18 01:18 82 128/71 11/01/18 01:16 89 96 11/01/18 01:11 88 96 11/01/18 01:06 79 96 11/01/18 01:02 98.4 F 78 130/77 11/01/18 01:01 79 97 11/01/18 00:56 85 98 11/01/18 00:51 82 99 11/01/18 00:47 86 140/68 11/01/18 00:46 87 97 11/01/18 00:45 98.4 F 11/01/18 00:41 95 H 99 11/01/18 00:36 77 97 11/01/18 00:32 80 143/71 H 11/01/18 00:31 87 98 11/01/18 00:26 82 98 11/01/18 00:21 79 97 11/01/18 00:18 77 18 138/74 11/01/18 00:16 77 97 11/01/18 00:11 81 97 11/01/18 00:06 86 97 11/01/18 00:02 76 128/67 11/01/18 00:01 86 98 10/31/18 23:56 79 97 10/31/18 23:51 84 98 10/31/18 23:48 82 18 136/66 10/31/18 23:46 85 99 10/31/18 23:41 92 H 98 10/31/18 23:36 79 98 05 23:32 91 H 124/78 10/31/18 23:31 89 99 05 23:26 78 97 05 23:21 75 97 05 23:17 72 126/75 10/31/18 23:16 76 97 10/31/18 23:11 79 98 10/31/18 23:06 77 97 10/31/18 23:02 98.2 F 86 16 127/76 10/31/18 23:01 87 97 10/31/18 23:00 20 10/31/18 22:56 81 99 05 22:51 70 98 05/16/19 22:48 70 131/82 10/31/18 22:46 76 98 10/31/18 22:41 88 98 10/31/18 22:36 75 97 10/31/18 22:34 73 128/64 10/31/18 22:31 75 98 10/31/18 22:30 20 10/31/18 22:26 74 98 10/31/18 22:21 73 98 10/31/18 22:17 71 129/70 10/31/18 22:16 74 98 10/31/18 22:11 73 97 10/31/18 22:06 73 98 10/31/18 22:02 73 119/67 10/31/18 22:01 71 97 10/31/18 22:00 20 10/31/18 21:56 81 99 10/31/18 21:51 75 98 10/31/18 21:47 76 133/71 10/31/18 21:46 75 98 10/31/18 21:41 82 98 10/31/18 21:36 75 98 10/31/18 21:32 75 134/67 10/31/18 21:31 78 98 10/31/18 21:30 98.2 F 20 10/31/18 21:26 78 99 10/31/18 21:21 77 98 10/31/18 21:17 81 130/75 10/31/18 21:16 81 99 10/31/18 21:11 88 99 10/31/18 21:06 89 98 10/31/18 21:02 80 129/66 10/31/18 21:01 83 98 10/31/18 20:56 88 99 10/31/18 20:51 82 98 10/31/18 20:48 77 151/67 H 10/31/18 20:46 87 98 10/31/18 20:41 86 98 10/31/18 20:36 86 98 10/31/18 20:32 76 131/75 10/31/18 20:31 81 98 10/31/18 20:30 18 10/31/18 20:26 87 98 10/31/18 20:21 78 99 10/31/18 20:18 76 131/76 10/31/18 20:16 87 99 10/31/18 20:11 79 99 05/16/19 20:06 85 99 05/16/19 20:02 86 139/73 05/16/19 20:01 88 99 05/16/19 19:56 88 98 05/16/19 19:51 91 H 97 05/16/19 19:48 90 141/74 H 05/16/19 19:46 78 97 05/16/19 19:41 92 H 98 05/16/19 19:36 81 97 0516/19 19:32 81 124/81 0516/19 19:31 82 99 05/16/19 19:30 20 051619 19:26 83 98 05/16/19 19:21 84 98 0516/19 19:17 81 132/73 051619 19:16 80 98 051619 19:11 83 98 051619 19:06 85 98 051619 19:02 83 127/73 0516/19 19:01 82 98 051619 19:00 20 051619 18:56 82 98 051619 18:51 81 98 051619 18:47 86 121/75 051619 18:46 88 98 05/16/19 18:41 81 98 0516/19 18:36 79 98 0516/19 18:34 82 125/68 0516/19 18:31 85 98 05/16/19 18:26 81 99 0516/19 18:21 86 98 0516/19 18:17 85 119/74 0516/19 18:16 77 96 0516/19 18:11 87 98 0516/19 18:06 82 98 05/16/19 18:02 98.4 F 82 18 117/70 0516/19 18:01 83 98 05/16/19 17:56 79 98 05/16/19 17:51 82 98 05/16/19 17:47 79 122/67 0516/19 17:46 81 97 05/16/19 17:41 82 97 05/16/19 17:36 95 H 97 05/16/19 17:32 75 114/67 05/16/19 17:31 79 98 05/16/19 17:26 88 99 05/16/19 17:21 85 98 05/16/19 17:17 76 112/67 05/16/19 17:16 76 98 05/16/19 17:11 91 H 98 05/16/19 17:06 88 97 05/16/19 17:02 81 117/71 05/16/19 17:01 83 98 05/16/19 16:56 78 98 05/16/19 16:51 88 98 05/16/19 16:47 81 123/70 05/16/19 16:46 86 98 05/16/19 16:41 87 98 05/16/19 16:36 85 98 05/16/19 16:34 78 125/73 05/16/19 16:31 78 99 05/16/19 16:30 98.1 F 18 05/16/19 16:26 76 99 05/16/19 16:21 76 98 05/16/19 16:18 76 123/70 05/16/19 16:16 71 97 05/16/19 16:11 77 99 05/16/19 16:06 73 99 05/16/19 16:02 68 16 115/71 05/16/19 16:01 72 98 05/16/19 15:56 71 98 05/16/19 15:51 73 97 05/16/19 15:48 67 120/72 05/16/19 15:46 71 98 05/16/19 15:41 72 98 05/16/19 15:36 70 98 05/16/19 15:32 73 18 119/74 05/16/19 15:31 68 98 05/16/19 15:26 73 98 05/16/19 15:21 80 18 98 05/16/19 15:17 65 119/73 05/16/19 15:16 73 99 05/16/19 15:11 69 99 05/16/19 15:06 100 H 100 05/16/19 15:02 88 16 116/76 05/16/19 15:01 80 99 05/16/19 14:56 94 H 98 05/16/19 14:51 84 99 05/16/19 14:50 16 05/16/19 14:47 79 115/71 05/16/19 14:46 75 98 05/16/19 14:41 97.9 F 98 H 18 99 05/16/19 14:36 109 H 99 05/16/19 14:31 96 H 99 10/31/18 14:30 88 16 135/73 10/31/18 14:26 87 106/68 99 10/31/18 14:22 91 H 20 118/67 10/31/18 14:21 88 99 10/31/18 14:18 82 119/63 10/31/18 14:16 81 99 10/31/18 14:14 82 117/61 10/31/18 14:11 78 99 10/31/18 14:10 79 127/63 10/31/18 14:09 18 10/31/18 14:06 92 H 145/85 H 100 10/31/18 14:01 97 H 100 10/31/18 13:58 93 H 141/84 H 10/31/18 13:56 94 H 99 10/31/18 12:41 74 138/77 Pain Intensity Bilateral Abdomen: Pain Intensity: 0 Transfer of Care Handoff Completed per policy Notes Mental Status: alert / awake / arousable and participated in evaluation Nausea / Vomiting: adequately controlled Pain: adequately controlled Airway Patency, RR, SpO2: stable & adequate BP & HR: stable & adequate Hydration State: stable & adequate Neuraxial Anesthesia: was administered and sensory block is resolving Anesthetic Complications: no major complications apparent and Pt Satisfied with anesthetic care
[2018-11-01] MEDS: SIMETHICONE 80 MG CHEW PO SCH ×2 (17:00→20:36)
[2018-11-01] MEDS ORDERED: CARBOPROST TROMETHAMINE 250 MCG/ML AMPUL IM ONE (17:37)
[2018-11-01] MEDS: DOCUSATE SODIUM 100 MG CAP PO SCH (20:37)
[2018-11-02] MEDS ORDERED: MEPERIDINE HCL 50 MG/ML CARP IV PRN (04:34)
[2018-11-02] MEDS ORDERED: DiphenhydrAMINE HCL 50 MG/ML VIAL IV PRN (04:34)
[2018-11-02] MEDS ORDERED: ONDANSETRON INJ 2 MG/ML 2 ML VIAL IV PRN (04:34)
[2018-11-02] MEDS ORDERED: KETOROLAC 30 MG/ML VIAL IV PRN (04:34)
[2018-11-02] MEDS ORDERED: PROMETHAZINE HCL 25 MG in SODIUM CHLORIDE 0.9% 50 ML IV PRN (04:34)
[2018-11-02] MEDS ORDERED: CITRIC ACID/SODIUM CITRATE 15 ML UDC PO SCH (06:00)
[2018-11-02] MEDS ORDERED: CEFAZOLIN 2000MG 2,000 MG/15 ML SYR IV SCH ×3 (06:00)
[2018-11-02 07:11] LABS: Hematocrit (blood only) 21.6 % (37-47); Hemoglobin 7.6 g/dL (12.0-16.0); Mean Corpuscular Hgb Conc 35.2 g/dL (32-36); Mean Corpuscular Volume 86.4 fL (80-100); Mean Platelet Volume 9.5 fL (7.4-10.4); Platelet Count 141 K/uL (130-400); RDW Standard Deviation 47.4 fL (36.4-46.3); White Blood Count 8.91 K/uL (4.8-10.8)
--- NOTE | 2018-11-02 07:23 | Obstetrical Progress Note ---
Date of Service November 02, 2018 Postoperative day #1 from section for failure to progress the patient is well she is ambulating she is tolerating oral diet her pain is well controlled she has no extremity pain she has minimal bleeding Assessment & Plan (1) Non-reassuring electronic monitoring tracing: Continue current care ambulation Physical Exam Vital Signs (Past 24 Hours) Last Vital Signs Temp 97.9 F 11/02/18 04:00 Pulse 100 H 11/02/18 04:00 Resp 18 11/02/18 05:00 BP 120/70 11/02/18 04:00 Pulse Ox 98 11/02/18 04:00 Constitutional WD/WN, vitals as above Respiratory normal respiratory effort, lungs clear to auscultation Cardiovascular RRR, no murmur, no edema Genitourinary Uterus firm nontender below the umbilicus incision clean dry and intact
[2018-11-02 07:32] LABS: Basophils # (auto) 0.01 K/uL (0-0.2); Basophils % (auto) 0.1 %; Eosinophils % (auto) 1.1 %; Immature Granulocytes # (auto) 0.03 K/uL (0.00-0.02); Immature Granulocytes % (auto) 0.3 %; Lymphocytes # (auto) 1.24 K/uL (1.2-3.4); Lymphocytes % (auto) 13.9 %; Monocytes % (auto) 5.6 %; Neutrophils # (auto) 7.03 K/uL (1.4-6.5); RBC Morphology Unremarkable
[2018-11-02] MEDS: FLUOXETINE HCL 20 MG CAP PO SCH (08:30)
[2018-11-02] MEDS: DOCUSATE SODIUM 100 MG CAP PO SCH (08:30)
[2018-11-02] MEDS: PRENATAL VITAMIN 1 TAB PO SCH (08:30)
[2018-11-02] MEDS: SIMETHICONE 80 MG CHEW PO SCH ×4 (08:31→22:14)
[2018-11-02] MEDS: IBUPROFEN 600 MG TAB PO PRN ×4 (08:31→23:12)
[2018-11-02] MEDS: OXYCODONE/ACETAMINOPHEN 5mg/325mg TAB PO PRN ×4 (08:32→23:11)
[2018-11-02] MEDS ORDERED: Nursing to Pharmacy Communication ONE (18:23)
[2018-11-03] MEDS: IBUPROFEN 600 MG TAB PO PRN ×5 (03:39→23:29)
[2018-11-03] MEDS: OXYCODONE/ACETAMINOPHEN 5mg/325mg TAB PO PRN ×5 (03:39→23:28)
[2018-11-03] MEDS: SIMETHICONE 80 MG CHEW PO SCH ×4 (07:52→22:51)
[2018-11-03] MEDS: PRENATAL VITAMIN 1 TAB PO SCH (07:53)
[2018-11-03] MEDS: FLUOXETINE HCL 20 MG CAP PO SCH (07:53)
--- NOTE | 2018-11-03 08:23 | Obstetrical Progress Note ---
Date of Service November 03, 2018 Assessment & Plan (1) delivery delivered: Patient doing well. Encourage ambulation. Patient has no s/s of anemia. Plan d/c tomorrow. Subjective Ambulation: ambulating normally Passing Gas:: Yes Diet Tolerance:: regular diet Lochia:: Small Feeding Type:: breast feeding Patient feeling much better today. n/v totally resolved. Patient ambulating without difficulty. Not lightheaded or dizzy. Physical Exam Vital Signs (Past 24 Hours) Last Vital Signs Temp 98.2 F 11/02/18 23:50 Pulse 82 11/02/18 23:50 Resp 16 11/02/18 23:50 BP 110/69 11/02/18 23:50 Pulse Ox 99 11/02/18 23:50 Constitutional WD/WN, vitals as above Cardiovascular Extremities: + edema (+1 pitting edema to knee); no calf tenderness Gastrointestinal (Abdomen) soft, nt, slightly distended incision--c/d/i, no bruising.
[2018-11-04] MEDS: IBUPROFEN 600 MG TAB PO PRN ×2 (07:26→12:55)
[2018-11-04] MEDS: FLUOXETINE HCL 20 MG CAP PO SCH (07:27)
[2018-11-04] MEDS: PRENATAL VITAMIN 1 TAB PO SCH (07:27)
[2018-11-04] MEDS: SIMETHICONE 80 MG CHEW PO SCH ×2 (07:28→12:54)
[2018-11-04] MEDS: OXYCODONE/ACETAMINOPHEN 5mg/325mg TAB PO PRN ×2 (07:28→12:54)
--- NOTE | 2018-11-04 07:42 | Obstetrical Progress Note ---
Date of Service November 04, 2018 Assessment & Plan (1) delivery delivered: Doing well. Plan d/c today. Instructions given. Subjective Ambulation: ambulating normally Voiding: no voiding problems Passing Gas:: Yes Diet Tolerance:: regular diet Lochia:: Small Feeding Type:: breast feeding Pain controlled. Still stuggling with breast feeding. Physical Exam Vital Signs (Past 24 Hours) Last Vital Signs Temp 97.9 F 11/03/18 23:30 Pulse 85 11/03/18 23:30 Resp 18 11/03/18 23:30 BP 123/73 11/03/18 23:30 Pulse Ox 96 11/03/18 23:30 Constitutional WD/WN, vitals as above Gastrointestinal (Abdomen) abd--soft, nt, nd, incision c/d/i.
--- NOTE | 2018-11-06 10:25 | Discharge Summary ---
ADMISSION DIAGNOSES: 1. Intrauterine at 41-0/7 weeks. 2. Postdates. 3. Group B streptococcus positive. DISCHARGE DIAGNOSES: 1. Intrauterine at 41-0/7 weeks. 2. Postdates. 3. Group B streptococcus positive. 4. Failure to progress. PROCEDURES: 1. Torres bulb for cervical ripening. 2. Penicillin for GBS prophylaxis. 3. Pitocin augmentation. 4. Intrauterine pressure catheter. 5. Primary low transverse section. HISTORY OF PRESENT ILLNESS: The patient is a 37-year-old 2, para 0-0-1-0 with last menstrual period of 01/17/2018 and an EDC of 10/24/2018 confirmed by first trimester ultrasound who presents at 41-0/7 weeks for induction of labor secondary to postdates. The course was significant for depression and anxiety, treated with Prozac. GDM, diet controlled. GBS positive. Cervical exam prior to Torres balloon insertion was 1, 70, -3. On admission, she was 5, 70, -3. She was not having significant contractions on admission and notes positive movement. For the rest of the patient's detailed history and physical, please see her history and physical. ASSESSMENT: This is a 37-year-old 2, para 0-0-1-0 with an EDC of 10/24/2018 at 41-0/7 weeks for induction of labor for postdates. She was admitted. HOSPITAL COURSE: The patient was admitted. Her heart tones were category 1. She was started on penicillin for group B strep prophylaxis. She was started on Pitocin augmentation. Over the course of her labor, she eventually had rupture of membranes and an epidural anesthetic. We could never get her really into a great contraction pattern per [facility]. Her Pitocin was as high as 27. She progressed to about 7-8 cm and -2 station and never really progressed beyond that despite several hours of Pitocin augmentation. Then, the baby started to have some nonreassuring testing with some occasional late decelerations. This was following the second day of the induction. The Pitocin had been turned off. We had turned it back on again, and baby continued to have some late/deep variable decelerations despite inadequacy of uterine contractions. Discussed the situation with the patient and her partner. Recommended delivery for which they were agreeable. The patient underwent a primary low transverse section without difficulty to deliver a viable female infant. There was thick meconium upon entering the uterus. Baby was in BENITO presentation. There was a loose nuchal cord x1. Normal uterus, tubes, and ovaries were noted. The patient's postoperative course was uncomplicated. She tolerated a regular diet, ambulated without difficulty, voided after the removal of her Torres catheter, and passed gas. Her discharge H and H were 7.6 and 21.6, but she was asymptomatic from this. The patient was discharged home on postoperative day #3. She was given a prescription for Percocet as well as advised to use [id number] ibuprofen for pain management. She was continued on her antidepressant medication, and she will follow up in 6 weeks for a postoperative/ evaluation.
== END 2018-11-04 15:15 | disposition home or self-care (01) | DRG 788 ==
LOC: 4S1 07:52 → 4S2 11-01 13:43